=== PATIENT | female | born 1995 | race Caucasian/White ===

== ENCOUNTER 2016-12-29 17:16 | Outpatient (CLI) | payer OTHER ==
[~2016-12-29] VITALS: Ht 163.8 cm; Wt 65.9 kg
[2016-12-29 19:18] VITALS: BP 107/67
[2016-12-29] MEDS ORDERED: PRENATAL TABLE1 EAC3 PO (19:37)
[2016-12-29 21:30] VITALS: BP 119/77
== END 2016-12-29 22:25 | disposition home or self-care (01) ==
LOC: LDRP-OP 17:16 → EME 17:16 → EDSTATUS 18:34 → 2WEST 18:36
DX: O36.8130 Decreased fetal movements, third trimester, not applicable or unspecified (principal); Z3A.36 36 weeks gestation of pregnancy; O26.893 Other specified pregnancy related conditions, third trimester; R00.2 Palpitations
CPT/HCPCS: 59025; 76818; 93005; 99281; 99284; G0378

== ENCOUNTER 2017-01-07 00:09 | Outpatient (CLI) | payer OTHER ==
[~2017-01-07] VITALS: Ht 162.6 cm; Wt 66.2 kg
[~2017-01-07 00:09] MED LIST: PRENATAL TABLE1 EAC3 PO
[2017-01-07 00:30] VITALS: BP 116/66
== END 2017-01-07 02:11 | disposition home or self-care (01) ==
LOC: LDRP-OP 00:09 → 2WEST 00:10 → LDRP-OP 02-23 23:17
DX: O47.1 False labor at or after 37 completed weeks of gestation (principal); Z3A.37 37 weeks gestation of pregnancy
CPT/HCPCS: 59025; G0378

== ENCOUNTER 2017-01-22 17:03 | Outpatient (CLI) | payer OTHER ==
[~2017-01-22] VITALS: Ht 162.6 cm; Wt 67.1 kg
[2017-01-22 17:24] VITALS: BP 110/63
[2017-01-22] MEDS ORDERED: ZOLOFT25 MG PO (17:29)
[2017-01-22 19:22] VITALS: BP 110/70
== END 2017-01-22 20:25 | disposition home or self-care (01) ==
LOC: LDRP-OP 17:03 → 2WEST 17:05 → LDRP-OP 02-23 02:37
DX: O47.1 False labor at or after 37 completed weeks of gestation (principal); Z3A.39 39 weeks gestation of pregnancy
CPT/HCPCS: 59025; G0378

== ENCOUNTER 2017-01-23 08:22 | Inpatient (IN) | payer OTHER ==
[~2017-01-23] VITALS: Ht 162.6 cm; Wt 67.0 kg
[2017-01-23] VITALS (25 sets, daily range): BP systolic 97–128; BP diastolic 53–85
[~2017-01-23 08:22] MED LIST changes: +ZOLOFT25 MG PO
[2017-01-23 09:28] LABS: EOSINOPHIL (%) 1.3 % (0-5); EOSINOPHIL COUNT 0.1 K/uL (0-0.3); HEMATOCRIT 31.9 % (36.0-46.0); IMMATURE GRANULOCYTE (%) 0.8 % (0.0-0.7); IMMATURE GRANULOCYTE COUNT 0.1 K/uL; INSTRUMENT ABS NEUTROPHIL CT 5.5 K/uL; MCH 29.6 PG (29.0-34.0); MCHC 33.5 G/DL (30.0-36.0); MCV 88.1 FL (83-99); MEAN PLAT.VOLUME 10.9 uM^3 (9.5-12.4); MONOCYTE COUNT 0.8 K/uL (0-0.8); NEUTROPHIL (%) 64.6 % (45-76); NEUTROPHIL COUNT 5.5 K/uL (1.8-6.4); PLATELET COUNT 203 K/uL (156-360); RBC DIS.WIDTH-CV 12.8 % (11.8-14.6); RBC DIS.WIDTH-SD 40.9 % (39-53); RED BLOOD COUNT 3.62 M/uL (3.80-5.20); WHITE BLOOD COUNT 8.5 K/uL (4.1-10.2)
[2017-01-24 05:49] LABS: EOSINOPHIL (%) 0.6 % (0-5); EOSINOPHIL COUNT 0.1 K/uL (0-0.3); HEMATOCRIT 24.1 % (36.0-46.0); IMMATURE GRANULOCYTE (%) 0.6 % (0.0-0.7); IMMATURE GRANULOCYTE COUNT 0.1 K/uL; INSTRUMENT ABS NEUTROPHIL CT 9.3 K/uL; LYMPHOCYTE COUNT 1.8 K/uL (1.0-2.8); MCH 29.7 PG (29.0-34.0); MCHC 33.2 G/DL (30.0-36.0); MCV 89.6 FL (83-99); MONOCYTE (%) 10.1 % (3-12); MONOCYTE COUNT 1.3 K/uL (0-0.8); NEUTROPHIL COUNT 9.3 K/uL (1.8-6.4); PLATELET COUNT 156 K/uL (156-360); RBC DIS.WIDTH-SD 41.8 % (39-53); WHITE BLOOD COUNT 12.6 K/uL (4.1-10.2)
[2017-01-24 05:50] LABS: RED BLOOD COUNT 2.69 M/uL (3.80-5.20)
[2017-01-24 15:54] VITALS: BP 103/64
[2017-01-24 23:24] VITALS: BP 95/64
[2017-01-25 07:18] VITALS: BP 99/65
== END 2017-01-25 13:19 | disposition home or self-care (01) | DRG 775 ==
LOC: LDRP-OP 08:22 → 2WEST 08:23 → LDRP-OP 02-23 22:53
PROVIDERS: Advanced Practice Midwife
DX: O70.0 First degree perineal laceration during delivery (principal); O99.02 Anemia complicating childbirth; D62 Acute posthemorrhagic anemia; O42.92 Full-term premature rupture of membranes, unspecified as to length of time between rupture and onset of labor; O99.824 Streptococcus B carrier state complicating childbirth; Z3A.40 40 weeks gestation of pregnancy; Z37.0 Single live birth
CPT/HCPCS: 85025; C1755; J2540; J3010

== ENCOUNTER 2017-03-02 14:38 | Day surgery (SDC) | payer OTHER ==
[~2017-03-02] VITALS: Ht 162.6 cm; Wt 61.0 kg
[2017-03-02] MEDS ORDERED: IBUPROFEN800 MG PO (16:18)
[2017-03-02 17:59] LABS: EOSINOPHIL (%) 2.8 % (0-5); EOSINOPHIL COUNT 0.2 K/uL (0-0.3); HEMATOCRIT 30.1 % (36.0-46.0); IMMATURE GRANULOCYTE (%) 0.2 % (0.0-0.7); LYMPHOCYTE COUNT 1.5 K/uL (1.0-2.8); MCH 27.1 PG (29.0-34.0); MCHC 31.6 G/DL (30.0-36.0); MCV 85.8 FL (83-99); MEAN PLAT.VOLUME 9.2 uM^3 (9.5-12.4); MONOCYTE (%) 6.6 % (3-12); MONOCYTE COUNT 0.6 K/uL (0-0.8); PLATELET COUNT 244 K/uL (156-360); RBC DIS.WIDTH-CV 12.5 % (11.8-14.6); RBC DIS.WIDTH-SD 39.3 % (39-53); RED BLOOD COUNT 3.51 M/uL (3.80-5.20); WHITE BLOOD COUNT 8.3 K/uL (4.1-10.2)
[2017-03-02 18:22] LABS: ANION GAP 9 MEQ/L (2-14); CHLORIDE 106 MEQ/L (99-109); POTASSIUM 3.5 MEQ/L (3.7-5.4); SAMPLE HEMOLYSIS CHECK 0; SAMPLE ICTERIC CHECK 0; SAMPLE LIPEMIA CHECK 0; SODIUM 142 MEQ/L (136-147)
[2017-03-02 18:27] LABS: GFR ESTIMATE (CALCULATED) > 59 mL/min/; GLUCOSE 72 mg/dL (70-99); UREA NITROGEN (BUN) 11 mg/dL (9-23)
[2017-03-02] MEDS ORDERED: PERCOCET 5/31 TABLET PO (21:36)
[2017-03-02] MEDS ORDERED: BACTRIM,SEPT1 TABLE1 PO (21:40)
[2017-03-02 21:45] VITALS: BP 127/87
[2017-03-02 22:32] VITALS: BP 129/91
== END 2017-03-02 22:49 | disposition home or self-care (01) ==
LOC: EME 14:38 → SDC 20:16
PROVIDERS: Physician Assistant Medical
PROC: 0H9T0ZZ Drainage of Right Breast, Open Approach (ICD-10-PCS; principal; 2017-03-02)
DX: O91.12 Abscess of breast associated with the puerperium (principal); I47.1 Supraventricular tachycardia
CPT/HCPCS: 76642; 80048; 85025; 87040; 87070; 87075; 87077; 87147; 87186; 87205; 93005; 99281; 99285; J1100; J1885; J2175; J2270; J2405; J2543; J3010; J3370; J7030

== ENCOUNTER 2017-08-26 12:34 | Emergency (ER) | payer OTHER ==
[~2017-08-26] VITALS: Ht 162.6 cm; Wt 67.8 kg
[~2017-08-26 12:34] MED LIST changes: +BACTRIM,SEPT1 TABLE1 PO; +IBUPROFEN800 MG PO; +PERCOCET 5/31 TABLET PO
[2017-08-26] MEDS ORDERED: MOTRIN800 MG PO (13:35)
[2017-08-26 14:14] VITALS: BP 103/67
== END 2017-08-26 14:15 | disposition home or self-care (01) ==
LOC: EME 12:34
PROC: 2W3QX1Z Immobilization of Right Lower Leg using Splint (ICD-10-PCS; principal; 2017-08-26)
DX: S92.354A Nondisplaced fracture of fifth metatarsal bone, right foot, initial encounter for closed fracture (principal); W10.9XXA Fall (on) (from) unspecified stairs and steps, initial encounter; Y93.89 Activity, other specified; Y92.89 Other specified places as the place of occurrence of the external cause
CPT/HCPCS: 73610; 73630; 99281; 99285